=== PATIENT | male | born 1930 | race Caucasian/White ===

== ENCOUNTER → 2018-05-28 | Outpatient (CLI) | payer MEDICARE, OTHER ==
[~2018-05-28] MED LIST: AMARYL 2MG T2 MG/TAB PO; AMARYL1 MG PO; FLOMAX 0.40.4 MG/CAP PO; FLOMAX0.4 MG PO; GLUCOPHAGE500 MG/TAB PO; LISINOPRIL10 MG PO; NEURONTIN100 MG/CAP PO; PRAVACHOL 20MG20 MG PO; PRAVASTATIN20 MG PO; PRIL40 PO; PRILOSEC 20MG20 MG PO; TENORETIC 50 501 TAB PO; TENORETIC PO; TENORMIN 5050 MG/TAB PO; TENORMIN0.5 MG/ML IV
== END ==
LOC: ZCOL.LAB 12:03
DX: L03.115 Cellulitis of right lower limb (principal)